=== PATIENT | female | born 1970 | race Caucasian/White ===

== ENCOUNTER 2025-02-20 12:43 | Inpatient (IN) | payer MEDICAID, OTHER ==
[~2025-02-20] VITALS: Ht 157.5 cm; Wt 51.7 kg
[2025-02-20 12:48] VITALS: O2SAT 100
[2025-02-20 14:32] LABS: BASOPHILS % 1.0 % (0.0-2.0); EOSINOPHILS % 0.8 % (0.0-5.0); HEMATOCRIT. 30.0 % (36.0-48.0); HEMOGLOBIN. 10.0 g/dL (12.0-16.0); LYMPHOCYTES % 14.8 % (20.0-50.0); MEAN PLATELET VOLUME 6.8 fl (7.4-10.4); MONOCYTES % 9.9 % (2.0-8.0); NEUTROPHILS % 73.5 % (40.0-76.0); PLATELET 362 x1000/uL (130-400); RED BLOOD CELL COUNT 3.61 mill/uL (4.2-5.4); RED CELL DISTRIBUTION WIDTH 16.6 % (11.6-14.6)
[2025-02-20 14:53] LABS: INR 1.1
[2025-02-20 15:16] LABS: ETHANOL BLOOD < 10 mg/dL (<10); UREA NITROGEN BLOOD 76 mg/dL (9-23)
[2025-02-20 15:24] LABS: CREATININE 6.7 mg/dL (0.6-1.0); TROPONIN I HIGH SENSITIVITY 41 ng/L (3.0-34)
[2025-02-20] MEDS: CLOPIDOGREL 75MG TABLET PO ONE (15:58)
[2025-02-20] MEDS: ASPIRIN 325MG EC TABLET PO ONE (15:58)
[2025-02-20 16:00] VITALS: BP 114/60; PULSE 62; RESP 18; TEMP 37; O2SAT 98
[2025-02-20 18:11] VITALS: BP 114/60; PULSE 51; RESP 18; TEMP 37
[2025-02-20 20:00] VITALS: BP 140/62; PULSE 48; RESP 16; TEMP 36.5; O2SAT 98
[2025-02-20] MEDS: SEVELAMER CARBONATE 800 MG TABLET PO SCH (20:55)
[2025-02-20] MEDS: ATORVASTATIN CALCIUM 40MG TABLET PO SCH (20:55)
[2025-02-21] VITALS (8 sets, daily range): BP systolic 129–167; BP diastolic 54–92; PULSE 51–67; RESP 17–20; TEMP 36.114–37.1; O2SAT 98–100
[2025-02-21] MEDS: ZOLPIDEM TARTRATE 5MG TABLET PO PRN (02:22)
[2025-02-21] MEDS: PANTOPRAZOLE 40MG DR TABLET PO SCH (06:46)
[2025-02-21] MEDS: ASPIRIN 81MG TABLET PO SCH (08:17)
[2025-02-21 08:29] LABS: BASOPHILS % 0.7 % (0.0-2.0); EOSINOPHILS % 1.6 % (0.0-5.0); HEMATOCRIT. 30.6 % (36.0-48.0); HEMOGLOBIN. 10.1 g/dL (12.0-16.0); LYMPHOCYTES % 28.5 % (20.0-50.0); MEAN PLATELET VOLUME 7.0 fl (7.4-10.4); MONOCYTES % 11.0 % (2.0-8.0); NEUTROPHILS % 58.2 % (40.0-76.0); PLATELET 354 x1000/uL (130-400); RED BLOOD CELL COUNT 3.71 mill/uL (4.2-5.4); RED CELL DISTRIBUTION WIDTH 16.6 % (11.6-14.6)
[2025-02-21 08:56] LABS: TRIGLYCERIDE 127 mg/dL (0-150)
[2025-02-21 08:57] LABS: LDL CHOLESTEROL 133 mg/dL (5-100); UREA NITROGEN BLOOD 92 mg/dL (9-23)
[2025-02-21 08:58] LABS: ASPARTATE AMINOTRANSFERASE 17 IU/L (<34)
[2025-02-21 08:59] LABS: BILIRUBIN TOTAL < 0.2 mg/dL (0.1-1.0); PROTEIN TOTAL 7.2 g/dL (6.0-8.3)
[2025-02-21 09:05] LABS: CREATININE 8.2 mg/dL (0.6-1.0)
[2025-02-21] MEDS ORDERED: ONDANSETRON HCL 4MG/2ML INJ IV PRN (12:45)
[2025-02-21] MEDS ORDERED: ASPIRIN 81MG TABLET PO SCH (13:00)
[2025-02-21 17:12] LABS: HEPATITIS A AB IGM NEGATIVE (Negative)
[2025-02-21 17:13] LABS: HEPATITIS B CORE AB IGM NEGATIVE (Negative); HEPATITIS C AB NON REACTIVE (Neg) (Negative)
[2025-02-21] MEDS: ATORVASTATIN CALCIUM 40MG TABLET PO SCH (20:25)
[2025-02-22] VITALS (12 sets, daily range): BP systolic 99–184; BP diastolic 63–109; PULSE 59–85; RESP 16–20; TEMP 36.114–36.7; O2SAT 96–99
[2025-02-22 07:06] LABS: BASOPHILS % 0.6 % (0.0-2.0); EOSINOPHILS % 1.0 % (0.0-5.0); HEMATOCRIT. 29.0 % (36.0-48.0); HEMOGLOBIN. 9.6 g/dL (12.0-16.0); LYMPHOCYTES % 12.1 % (20.0-50.0); MEAN PLATELET VOLUME 6.7 fl (7.4-10.4); MONOCYTES % 8.7 % (2.0-8.0); NEUTROPHILS % 77.6 % (40.0-76.0); PLATELET 338 x1000/uL (130-400); RED BLOOD CELL COUNT 3.55 mill/uL (4.2-5.4); RED CELL DISTRIBUTION WIDTH 16.6 % (11.6-14.6)
[2025-02-22 07:17] LABS: UREA NITROGEN BLOOD 39.0 mg/dL (9-23)
[2025-02-22 07:36] LABS: CREATININE 4.3 mg/dL (0.6-1.0)
[2025-02-22 08:30] LABS: CLARITY URINE TURBID (CLEAR); COLOR URINE ORANGE (YELLOW); GLUCOSE URINE TRACE (NEGATIVE); KETONES URINE NEGATIVE (NEGATIVE); LEUKOCYTE ESTERASE URINE 2+ (NEGATIVE); NITRITE URINE NEGATIVE (NEGATIVE); OCCULT BLOOD URINE 3+ (NEGATIVE); PH URINE 7.0 (4.5-8.0); PROTEIN URINE 3+ (NEGATIVE); SPECIFIC GRAVITY URINE 1.022 (1.005-1.030); UROBILINOGEN URINE 0.2 E.U./dL (0.2-1.0)
[2025-02-22 08:56] LABS: BACTERIA URINE 2+; RBC URINE 15-25 /hpf (0-2); SQUAMOUS EPITHELIAL CELL URINE 3+ /lpf (RARE/1+); YEAST URINE NONE SEEN
[2025-02-22 09:30] LABS: *AMPHETAMINES SCREEN URINE NEGATIVE (NEGATIVE); *BARBITURATES SCREEN URINE NEGATIVE (NEGATIVE); *BENZODIAZEPINES SCREEN URINE NEGATIVE (NEGATIVE); *COCAINE SCREEN URINE NEGATIVE (NEGATIVE); CANNABINOID URINE SCREEN NEGATIVE (NEGATIVE); ECSTASY MDMA SCREEN URINE NEGATIVE (NEGATIVE); METHADONE URINE SCREEN NEGATIVE (NEGATIVE); OPIATES URINE SCREEN NEGATIVE (NEGATIVE); PHENCYCLIDINE URINE SCREEN NEGATIVE (NEGATIVE)
[2025-02-22] MEDS: FAMOTIDINE 20MG/2ML VIAL IV SCH (09:44)
[2025-02-22] MEDS: FAMOTIDINE 20MG TABLET PO SCH (18:08)
[2025-02-22] MEDS: CEFTRIAXONE 1GM/50ML 50 ML IV SCH (21:01)
[2025-02-23] VITALS (13 sets, daily range): BP systolic 119–169; BP diastolic 50–94; PULSE 53–82; RESP 17–20; TEMP 35.66952–36.6; O2SAT 96–98
[2025-02-23 08:33] LABS: UREA NITROGEN BLOOD 62.0 mg/dL (9-23)
[2025-02-23] MEDS: ACETAMINOPHEN 325MG TABLET PO PRN (08:36)
[2025-02-23 08:38] LABS: CREATININE 6.5 mg/dL (0.6-1.0)
[2025-02-23 12:23] LABS: BASOPHILS % 0.6 % (0.0-2.0); EOSINOPHILS % 0.7 % (0.0-5.0); HEMATOCRIT. 26.4 % (36.0-48.0); HEMOGLOBIN. 8.8 g/dL (12.0-16.0); LYMPHOCYTES % 13.4 % (20.0-50.0); MEAN PLATELET VOLUME 6.3 fl (7.4-10.4); MONOCYTES % 6.7 % (2.0-8.0); NEUTROPHILS % 78.6 % (40.0-76.0); PLATELET 263 x1000/uL (130-400); RED BLOOD CELL COUNT 3.17 mill/uL (4.2-5.4); RED CELL DISTRIBUTION WIDTH 16.7 % (11.6-14.6)
[2025-02-23] MEDS: CLONIDINE 0.2MG TABLET PO SCH (12:50)
[2025-02-24] VITALS: BP 166/70; PULSE 62; RESP 19; TEMP 36.3; O2SAT 99
[2025-02-24] MEDS: CLONIDINE 0.1MG TABLET PO PRN (03:26)
[2025-02-24 04:00] VITALS: BP 163/90; PULSE 72; RESP 18; TEMP 36.4; O2SAT 99
[2025-02-24 08:00] VITALS: BP 165/87; PULSE 62; RESP 18; TEMP 36.2; O2SAT 96
[2025-02-24 11:31] LABS: BASOPHILS % 0.8 % (0.0-2.0); EOSINOPHILS % 0.8 % (0.0-5.0); HEMATOCRIT. 25.5 % (36.0-48.0); HEMOGLOBIN. 8.2 g/dL (12.0-16.0); LYMPHOCYTES % 12.6 % (20.0-50.0); MEAN PLATELET VOLUME 6.9 fl (7.4-10.4); MONOCYTES % 8.6 % (2.0-8.0); NEUTROPHILS % 77.2 % (40.0-76.0); PLATELET 243 x1000/uL (130-400); RED BLOOD CELL COUNT 3.07 mill/uL (4.2-5.4); RED CELL DISTRIBUTION WIDTH 16.7 % (11.6-14.6)
[2025-02-24 11:44] LABS: UREA NITROGEN BLOOD 54.0 mg/dL (9-23)
[2025-02-24 11:46] LABS: CREATININE 6.2 mg/dL (0.6-1.0)
[2025-02-24 12:00] VITALS: BP 144/84; PULSE 60; RESP 18; TEMP 36.3; O2SAT 95
[2025-02-24 16:00] VITALS: BP 175/94; PULSE 54; RESP 18; TEMP 36.4; O2SAT 98
[2025-02-24 20:00] VITALS: BP 165/92; PULSE 60; RESP 18; TEMP 36.6; O2SAT 98
[2025-02-25] VITALS (14 sets, daily range): BP systolic 15–190; BP diastolic 79–99; PULSE 48–62; RESP 16–20; TEMP 36.22512–36.50292; O2SAT 98–100
[2025-02-25] MEDS: AMLODIPINE 10MG TABLET PO SCH (17:12)
[2025-02-26 04:00] VITALS: BP 158/75; PULSE 58; RESP 18; TEMP 36.6; O2SAT 100
[2025-02-26 08:00] VITALS: BP 150/71; PULSE 52; RESP 18; TEMP 36.5; O2SAT 98
[2025-02-26 12:00] VITALS: BP 153/84; PULSE 53; RESP 18; TEMP 36.3; O2SAT 98
[2025-02-26 16:00] VITALS: BP 124/79; PULSE 53; RESP 18; TEMP 36.3; O2SAT 98
[2025-02-26 20:00] VITALS: BP 157/89; PULSE 70; RESP 18; TEMP 36.3; O2SAT 98
[2025-02-27] VITALS (11 sets, daily range): BP systolic 151–172; BP diastolic 57–101; PULSE 59–72; RESP 18–19; TEMP 36.2–37.4; O2SAT 95–100
[2025-02-27] MEDS: HALOPERIDOL LACTATE 5MG/ML VIAL IM NR (15:23)
[2025-02-28] VITALS (7 sets, daily range): BP systolic 136–177; BP diastolic 78–96; PULSE 51–74; RESP 18–19; TEMP 36.1–36.8; O2SAT 96–100
[2025-03-01] VITALS: BP 178/96; PULSE 70; RESP 18; TEMP 36.1; O2SAT 98
[2025-03-01 04:00] VITALS: BP 185/103; PULSE 62; RESP 18; TEMP 36; O2SAT 97
[2025-03-01 08:00] VITALS: BP 172/99; PULSE 64; RESP 20; TEMP 36.5; O2SAT 100
[2025-03-01 12:00] VITALS: BP 175/96; PULSE 63; RESP 20; TEMP 36.2; O2SAT 99
[2025-03-01 16:00] VITALS: BP 156/91; PULSE 75; RESP 20; TEMP 36.6; O2SAT 99
[2025-03-01 20:00] VITALS: BP 177/91; PULSE 93; RESP 16; TEMP 36.4; O2SAT 99
[2025-03-01] MEDS: HYDRALAZINE HCL 25MG TABLET PO SCH (21:54)
[2025-03-02] VITALS (15 sets, daily range): BP systolic 140–175; BP diastolic 65–102; PULSE 72–108; RESP 18–20; TEMP 36.2–36.7; O2SAT 95–98
[2025-03-03 08:00] VITALS: BP 175/97; PULSE 83; RESP 18; TEMP 36.8; O2SAT 97
[2025-03-03 12:00] VITALS: BP 152/87; PULSE 81; RESP 19; TEMP 36.7; O2SAT 100
[2025-03-03 16:00] VITALS: BP 163/90; PULSE 93; RESP 19; TEMP 36.8; O2SAT 100
[2025-03-03 20:00] VITALS: BP 150/83; PULSE 94; RESP 18; TEMP 37; O2SAT 98
[2025-03-03] MEDS: HYDRALAZINE HCL 25MG TABLET PO SCH (20:59)
[2025-03-04] VITALS (14 sets, daily range): BP systolic 108–174; BP diastolic 54–111; PULSE 90–113; RESP 17–20; TEMP 35.66952–37.3; O2SAT 97–99
[2025-03-04] MEDS: HYDRALAZINE HCL 100MG TABLET PO SCH (13:35)
[2025-03-05] VITALS: BP 130/76; PULSE 101; RESP 18; TEMP 36.2; O2SAT 99
[2025-03-05 08:00] VITALS: BP 140/80; PULSE 90; RESP 18; TEMP 36.4; O2SAT 98
[2025-03-05 16:00] VITALS: BP 139/77; PULSE 88; RESP 18; TEMP 36.7; O2SAT 99
[2025-03-05] MEDS: LORAZEPAM 1MG TABLET PO PRN (18:33)
[2025-03-05 20:00] VITALS: BP 146/84; PULSE 99; RESP 19; TEMP 36.2; O2SAT 97
[2025-03-05] MEDS ORDERED: ACETAMINOPHEN 325MG TABLET PO PRN (21:45)
[2025-03-06] VITALS (14 sets, daily range): BP systolic 126–153; BP diastolic 70–97; PULSE 66–103; RESP 17–22; TEMP 36.33624–37.2; O2SAT 97–99
[2025-03-06 08:40] LABS: BASOPHILS % 0.9 % (0.0-2.0); EOSINOPHILS % 0.9 % (0.0-5.0); HEMATOCRIT. 25.6 % (36.0-48.0); HEMOGLOBIN. 8.4 g/dL (12.0-16.0); LYMPHOCYTES % 14.1 % (20.0-50.0); MEAN PLATELET VOLUME 6.1 fl (7.4-10.4); MONOCYTES % 9.3 % (2.0-8.0); NEUTROPHILS % 74.8 % (40.0-76.0); PLATELET 369 x1000/uL (130-400); RED BLOOD CELL COUNT 3.14 mill/uL (4.2-5.4); RED CELL DISTRIBUTION WIDTH 16.6 % (11.6-14.6)
[2025-03-06 09:03] LABS: UREA NITROGEN BLOOD 82.0 mg/dL (9-23)
[2025-03-06 09:04] LABS: CREATININE 9.0 mg/dL (0.6-1.0)
[2025-03-07] VITALS: BP 155/92; PULSE 105; RESP 20; TEMP 37.1; O2SAT 97
[2025-03-07 08:20] VITALS: BP 99/52; PULSE 87; RESP 20; TEMP 36.7; O2SAT 98
[2025-03-07 13:44] VITALS: BP 153/78; PULSE 80; RESP 20; TEMP 36.7; O2SAT 98
[2025-03-07 17:20] VITALS: BP 141/83; PULSE 80; RESP 16; TEMP 36.7; O2SAT 98
[2025-03-07 20:00] VITALS: BP 145/86; PULSE 105; RESP 17; TEMP 36.5; O2SAT 97
[2025-03-08] VITALS: BP 157/101; PULSE 104; RESP 18; TEMP 36.6; O2SAT 97
[2025-03-08 06:53] LABS: BASOPHILS % 1.0 % (0.0-2.0); EOSINOPHILS % 0.7 % (0.0-5.0); HEMATOCRIT. 24.0 % (36.0-48.0); HEMOGLOBIN. 8.1 g/dL (12.0-16.0); LYMPHOCYTES % 16.8 % (20.0-50.0); MEAN PLATELET VOLUME 5.8 fl (7.4-10.4); MONOCYTES % 11.1 % (2.0-8.0); NEUTROPHILS % 70.4 % (40.0-76.0); PLATELET 355 x1000/uL (130-400); RED BLOOD CELL COUNT 2.97 mill/uL (4.2-5.4); RED CELL DISTRIBUTION WIDTH 16.5 % (11.6-14.6)
[2025-03-08 07:08] LABS: UREA NITROGEN BLOOD 78.0 mg/dL (9-23)
[2025-03-08 07:12] LABS: CREATININE 9.0 mg/dL (0.6-1.0)
[2025-03-08 08:00] VITALS: BP 155/93; PULSE 100; RESP 22; TEMP 36.7; O2SAT 98
[2025-03-08 12:00] VITALS: BP 157/91; PULSE 90; RESP 19; TEMP 36.7; O2SAT 99
[2025-03-08 16:00] VITALS: BP 151/83; PULSE 92; RESP 19; TEMP 36.3; O2SAT 95
[2025-03-08 20:00] VITALS: BP 136/99; PULSE 89; RESP 19; TEMP 36.3; O2SAT 97
[2025-03-09] VITALS (11 sets, daily range): BP systolic 115–154; BP diastolic 69–97; PULSE 71–100; RESP 15–20; TEMP 36.1–36.7; O2SAT 15–99
[2025-03-10] VITALS: BP 138/79; PULSE 87; RESP 18; TEMP 36.8; O2SAT 98
[2025-03-10 04:00] VITALS: BP 156/89; PULSE 99; RESP 18; TEMP 36.8; O2SAT 98
[2025-03-10 07:36] LABS: BASOPHILS % 0.7 % (0.0-2.0); EOSINOPHILS % 0.8 % (0.0-5.0); HEMATOCRIT. 21.9 % (36.0-48.0); HEMOGLOBIN. 7.3 g/dL (12.0-16.0); LYMPHOCYTES % 18.2 % (20.0-50.0); MEAN PLATELET VOLUME 5.9 fl (7.4-10.4); MONOCYTES % 8.9 % (2.0-8.0); NEUTROPHILS % 71.4 % (40.0-76.0); PLATELET 282 x1000/uL (130-400); RED BLOOD CELL COUNT 2.74 mill/uL (4.2-5.4); RED CELL DISTRIBUTION WIDTH 17.4 % (11.6-14.6)
[2025-03-10 07:54] LABS: UREA NITROGEN BLOOD 72.0 mg/dL (9-23)
[2025-03-10 08:00] VITALS: BP 140/72; PULSE 96; RESP 18; TEMP 36.2; O2SAT 96
[2025-03-10 09:22] LABS: CREATININE 9.5 mg/dL (0.6-1.0)
[2025-03-10 12:00] VITALS: BP 135/87; PULSE 93; RESP 18; TEMP 36.5; O2SAT 97
[2025-03-10 16:00] VITALS: BP 133/77; PULSE 92; RESP 17; TEMP 36.4
[2025-03-10 20:00] VITALS: BP 134/82; PULSE 94; RESP 19; TEMP 36.5; O2SAT 98
[2025-03-10] MEDS: LORAZEPAM 1MG TABLET PO PRN (20:04)
[2025-03-10] MEDS: RISPERIDONE 0.25MG TABLET PO SCH (23:46)
[2025-03-11] VITALS (12 sets, daily range): BP systolic 125–149; BP diastolic 50–95; PULSE 68–103; RESP 14–19; TEMP 36.114–36.7; O2SAT 97–100
[2025-03-12] VITALS: BP 137/86; PULSE 97; RESP 18; TEMP 36.4; O2SAT 97
[2025-03-12 04:00] VITALS: BP 157/88; PULSE 87; RESP 14; TEMP 37; O2SAT 98
[2025-03-12 08:00] VITALS: BP 141/99; PULSE 93; RESP 19; TEMP 36.8; O2SAT 100
[2025-03-12 12:00] VITALS: BP 140/75; PULSE 95; RESP 20; TEMP 36; O2SAT 96
[2025-03-12 16:00] VITALS: BP 130/90; PULSE 87; RESP 19; TEMP 35.9; O2SAT 100
[2025-03-12 20:00] VITALS: BP 131/85; PULSE 81; RESP 18; TEMP 36.2; O2SAT 100
[2025-03-13] VITALS (13 sets, daily range): BP systolic 104–157; BP diastolic 56–95; PULSE 67–97; RESP 16–20; TEMP 35.9–36.7; O2SAT 96–100
[2025-03-14 00:10] VITALS: BP 148/95; PULSE 98; RESP 20; TEMP 36.4; O2SAT 96
[2025-03-14 04:10] VITALS: BP 145/89; PULSE 98; RESP 20; TEMP 36.9; O2SAT 95
[2025-03-14 08:00] VITALS: BP 145/79; PULSE 86; RESP 18; TEMP 36.5; O2SAT 96
[2025-03-14 12:00] VITALS: BP 148/85; PULSE 84; RESP 20; TEMP 36.4; O2SAT 96
[2025-03-14 16:00] VITALS: BP 127/91; PULSE 91; RESP 20; TEMP 36.4; O2SAT 97
[2025-03-14 20:00] VITALS: BP 113/77; PULSE 85; RESP 19; TEMP 36.2; O2SAT 98
[2025-03-15] VITALS: BP 164/91; PULSE 103; RESP 18; TEMP 36.2; O2SAT 98
[2025-03-15 04:00] VITALS: BP 150/96; PULSE 96; RESP 18; TEMP 36.1; O2SAT 97
[2025-03-15 08:00] VITALS: BP 158/94; PULSE 99; RESP 18; TEMP 36.8; O2SAT 94
[2025-03-15 12:00] VITALS: BP 132/84; PULSE 90; RESP 18; TEMP 36.7; O2SAT 94
[2025-03-15 16:00] VITALS: BP 121/62; PULSE 87; RESP 18; TEMP 36.8; O2SAT 94
[2025-03-16] VITALS (14 sets, daily range): BP systolic 109–154; BP diastolic 66–89; PULSE 56–102; RESP 16–19; TEMP 35.7–36.7; O2SAT 95–100
[2025-03-17] VITALS: BP 131/87; PULSE 94; RESP 16; TEMP 36.7; O2SAT 97
[2025-03-17 04:00] VITALS: BP 136/75; PULSE 86; RESP 18; TEMP 36.6; O2SAT 97
[2025-03-17 08:00] VITALS: BP 140/73; PULSE 90; RESP 19; TEMP 36.5; O2SAT 100
[2025-03-17 12:00] VITALS: BP 116/89; PULSE 87; RESP 18; TEMP 37.2; O2SAT 98
[2025-03-17 16:00] VITALS: BP 124/78; PULSE 90; RESP 19; TEMP 35.6; O2SAT 99
[2025-03-18] VITALS (11 sets, daily range): BP systolic 101–147; BP diastolic 63–89; PULSE 63–94; RESP 17–20; TEMP 35.7–37.1; O2SAT 96–98
[2025-03-19] VITALS (7 sets, daily range): BP systolic 99–155; BP diastolic 60–84; PULSE 63–95; RESP 18–19; TEMP 36.1–36.6; O2SAT 95–100
[2025-03-20] VITALS (13 sets, daily range): BP systolic 101–137; BP diastolic 56–81; PULSE 63–91; RESP 16–18; TEMP 35.2–36.50292; O2SAT 95–100
[2025-03-21] VITALS (9 sets, daily range): BP systolic 108–136; BP diastolic 2–82; PULSE 73–98; RESP 16–20; TEMP 36.1–37.11408; O2SAT 95–100
[2025-03-21 13:06] LABS: MEAN PLATELET VOLUME 6.7 fl (7.4-10.4); PLATELET 285 x1000/uL (130-400); RED BLOOD CELL COUNT 2.42 mill/uL (4.2-5.4); RED CELL DISTRIBUTION WIDTH 18.2 % (11.6-14.6)
[2025-03-21 13:18] LABS: UREA NITROGEN BLOOD 32.0 mg/dL (9-23)
[2025-03-21 13:22] LABS: HEMOGLOBIN. 6.5 g/dL (12.0-16.0)
[2025-03-21 13:23] LABS: HEMATOCRIT. 20.0 % (36.0-48.0)
[2025-03-21 13:26] LABS: CREATININE 5.8 mg/dL (0.6-1.0)
[2025-03-21 15:49] LABS: EOSINOPHILS % MANUAL 1.0 % (0.0-5.0); LYMPHOCYTES % MANUAL 9.0 % (20.0-60.0); MONOCYTES % MANUAL 10.0 % (2.0-8.0); NEUTROPHILS % MANUAL 80.0 % (45.0-75.0); NUCLEATED RED BLOOD CELLS 2 /100 WBC; PLATELET ESTIMATE NORMAL
[2025-03-21 18:52] LABS: PHOSPHORUS 4.0 mg/dL (2.5-4.9)
[2025-03-22] VITALS: BP 128/79; PULSE 80; RESP 19; TEMP 36.7; O2SAT 96
[2025-03-22 00:56] VITALS: BP 140/85; PULSE 96; RESP 18; TEMP 36.61404
[2025-03-22 01:51] VITALS: BP 139/81; PULSE 91; RESP 18; TEMP 36.83628
[2025-03-22 04:00] VITALS: BP 142/84; PULSE 89; RESP 16; TEMP 36.7; O2SAT 97
[2025-03-22 04:12] LABS: INR 1.0
[2025-03-22 12:00] VITALS: BP 123/74; PULSE 81; RESP 17; TEMP 36.5; O2SAT 97
[2025-03-22 16:00] VITALS: BP 98/52; PULSE 89; RESP 17; TEMP 36.4; O2SAT 96
[2025-03-23] VITALS: BP 118/80; PULSE 88; RESP 18; TEMP 36; O2SAT 97
[2025-03-23 04:00] VITALS: BP 128/65; PULSE 79; RESP 17; TEMP 36.1; O2SAT 99
[2025-03-23 07:03] LABS: HEMATOCRIT. 22.7 % (36.0-48.0); HEMOGLOBIN. 7.7 g/dL (12.0-16.0); MEAN PLATELET VOLUME 6.5 fl (7.4-10.4); PLATELET 324 x1000/uL (130-400); RED BLOOD CELL COUNT 2.78 mill/uL (4.2-5.4); RED CELL DISTRIBUTION WIDTH 18.0 % (11.6-14.6)
[2025-03-23 07:11] LABS: UREA NITROGEN BLOOD 59.0 mg/dL (9-23)
[2025-03-23 07:55] LABS: CREATININE 8.9 mg/dL (0.6-1.0)
[2025-03-23 08:00] VITALS: BP 135/81; PULSE 71; RESP 17; TEMP 36.7; O2SAT 100
[2025-03-23 12:00] VITALS: BP 141/66; PULSE 90; RESP 20; TEMP 36.5; O2SAT 100
[2025-03-23 16:00] VITALS: BP 116/66; PULSE 88; RESP 17; TEMP 36.8; O2SAT 100
[2025-03-23 16:34] LABS: EOSINOPHILS % MANUAL 4.0 % (0.0-5.0); LYMPHOCYTES % MANUAL 25.0 % (20.0-60.0); MONOCYTES % MANUAL 7.0 % (2.0-8.0); NEUTROPHILS % MANUAL 64.0 % (45.0-75.0); PLATELET ESTIMATE NORMAL
[2025-03-23 20:00] VITALS: BP 115/62; PULSE 83; RESP 18; TEMP 36.3; O2SAT 99
[2025-03-23] MEDS: EPOETIN ALFA-EPBX 4,000 UNITS/ML VIAL SUBCUT SCH (22:13)
[2025-03-24] VITALS (12 sets, daily range): BP systolic 102–144; BP diastolic 47–83; PULSE 68–90; RESP 16–20; TEMP 36.1–36.7; O2SAT 96–99
[2025-03-25] MEDS: ZOLPIDEM TARTRATE 5MG TABLET PO PRN (02:55)
[2025-03-25 07:40] LABS: PLATELET 327 x1000/uL (130-400); RED BLOOD CELL COUNT 3.00 mill/uL (4.2-5.4); RED CELL DISTRIBUTION WIDTH 18.4 % (11.6-14.6)
[2025-03-25 07:57] LABS: UREA NITROGEN BLOOD 40 mg/dL (9-23)
[2025-03-25 07:59] LABS: PHOSPHORUS 3.8 mg/dL (2.5-4.9)
[2025-03-25 08:00] VITALS: BP 153/88; PULSE 82; RESP 20; TEMP 36.8; O2SAT 98
[2025-03-25 08:21] LABS: CREATININE 6.4 mg/dL (0.6-1.0)
[2025-03-25 12:00] VITALS: BP 125/83; PULSE 64; RESP 18; TEMP 36.7; O2SAT 95
[2025-03-25 16:00] VITALS: BP 140/81; PULSE 72; RESP 19; TEMP 36.4; O2SAT 99
[2025-03-25 20:00] VITALS: BP 117/75; PULSE 90; RESP 19; TEMP 37.1; O2SAT 96
[2025-03-26] VITALS (8 sets, daily range): BP systolic 124–170; BP diastolic 76–92; PULSE 88–92; RESP 16–20; TEMP 36.1–36.55848; O2SAT 96–97
[2025-03-27] VITALS (9 sets, daily range): BP systolic 110–170; BP diastolic 66–88; PULSE 68–101; RESP 17–18; TEMP 30.6–36.6; O2SAT 97–99
[2025-03-28] VITALS (12 sets, daily range): BP systolic 94–151; BP diastolic 60–91; PULSE 75–102; RESP 18–22; TEMP 35.89176–36.4; O2SAT 95–99
[2025-03-29 08:00] VITALS: BP 144/80; PULSE 77; RESP 18; TEMP 36.8; O2SAT 98
[2025-03-29 12:00] VITALS: BP 130/64; PULSE 74; RESP 18; TEMP 36.6; O2SAT 98
[2025-03-29 16:00] VITALS: BP 131/61; PULSE 75; RESP 18; TEMP 36.5; O2SAT 98
[2025-03-29 20:00] VITALS: BP 137/68; PULSE 84; RESP 18; TEMP 36.6; O2SAT 95
[2025-03-30] VITALS (14 sets, daily range): BP systolic 89–164; BP diastolic 52–102; PULSE 72–98; RESP 16–19; TEMP 36.2–37.1; O2SAT 93–99
[2025-03-31] VITALS: BP 125/83; PULSE 97; RESP 18; TEMP 36.4
[2025-03-31 04:00] VITALS: BP 127/86; PULSE 86; RESP 18; TEMP 36.2; O2SAT 100
[2025-03-31 08:00] VITALS: BP 164/89; PULSE 78; RESP 19; TEMP 36.1; O2SAT 100
[2025-03-31 12:00] VITALS: BP 151/84; PULSE 72; RESP 18; TEMP 36.1; O2SAT 97
[2025-03-31 16:00] VITALS: BP 149/95; PULSE 83; RESP 16; TEMP 36.7; O2SAT 100
[2025-04-01] VITALS (14 sets, daily range): BP systolic 105–162; BP diastolic 75–97; PULSE 75–105; RESP 18; TEMP 36.2–36.8; O2SAT 94–100
[2025-04-02 04:00] VITALS: BP 152/93; PULSE 89; RESP 18; TEMP 36.4; O2SAT 90
[2025-04-02 12:00] VITALS: BP 139/79; PULSE 81; RESP 16; TEMP 36.1; O2SAT 96
[2025-04-02 16:00] VITALS: BP 130/75; PULSE 81; RESP 18; TEMP 36.4; O2SAT 97
[2025-04-02 20:00] VITALS: BP 148/70; PULSE 94; RESP 17; TEMP 36.3; O2SAT 98
[2025-04-03] VITALS (7 sets, daily range): BP systolic 103–167; BP diastolic 69–98; PULSE 59–86; RESP 17–20; TEMP 36.28068–36.9; O2SAT 97–98
[2025-04-03 08:49] LABS: PLATELET 406 x1000/uL (130-400); RED BLOOD CELL COUNT 2.94 mill/uL (4.2-5.4); RED CELL DISTRIBUTION WIDTH 19.0 % (11.6-14.6)
[2025-04-04 08:00] VITALS: BP 151/94; PULSE 77; RESP 17; TEMP 36.7; O2SAT 97
[2025-04-04 12:00] VITALS: BP 141/89; PULSE 68; RESP 17; TEMP 36.4; O2SAT 98
[2025-04-04 20:00] VITALS: BP 141/85; PULSE 68; RESP 16; TEMP 35.9; O2SAT 95
[2025-04-05] VITALS: BP 124/78; PULSE 72; RESP 17; TEMP 35.8; O2SAT 97
[2025-04-05 08:00] VITALS: BP 154/84; PULSE 65; RESP 18; TEMP 36.4; O2SAT 98
[2025-04-05] MEDS: AMLODIPINE 10MG TABLET PO SCH (11:06)
[2025-04-05 12:00] VITALS: BP 137/80; PULSE 84; RESP 19; TEMP 36.1; O2SAT 99
[2025-04-05 16:00] VITALS: BP 125/70; PULSE 73; RESP 18; TEMP 36.4; O2SAT 97
[2025-04-05 20:00] VITALS: BP 140/78; PULSE 82; RESP 18; TEMP 36.8; O2SAT 98
[2025-04-06] VITALS (14 sets, daily range): BP systolic 95–141; BP diastolic 51–89; PULSE 67–81; RESP 16–19; TEMP 36.4–36.7; O2SAT 95–98
[2025-04-06] MEDS ORDERED: ALTEPLASE 2MG/VIAL ITC ONE (14:00)
[2025-04-06] MEDS ORDERED: ALTEPLASE 2MG/VIAL ITC NR (15:00)
[2025-04-06 20:03] LABS: BASOPHILS % 0.6 % (0.0-2.0); EOSINOPHILS % 1.3 % (0.0-5.0); HEMATOCRIT. 24.0 % (36.0-48.0); HEMOGLOBIN. 7.8 g/dL (12.0-16.0); LYMPHOCYTES % 14.9 % (20.0-50.0); MEAN PLATELET VOLUME 6.7 fl (7.4-10.4); MONOCYTES % 11.2 % (2.0-8.0); NEUTROPHILS % 72.0 % (40.0-76.0); PLATELET 487 x1000/uL (130-400); RED BLOOD CELL COUNT 2.91 mill/uL (4.2-5.4); RED CELL DISTRIBUTION WIDTH 18.7 % (11.6-14.6)
[2025-04-06 20:16] LABS: UREA NITROGEN BLOOD 63.0 mg/dL (9-23)
[2025-04-06 20:18] LABS: PHOSPHORUS 4.5 mg/dL (2.5-4.9)
[2025-04-06 20:32] LABS: CREATININE 7.6 mg/dL (0.6-1.0)
[2025-04-07 08:00] VITALS: BP 162/85; PULSE 81; RESP 20; TEMP 36.8; O2SAT 97
[2025-04-07 12:00] VITALS: BP 150/70; PULSE 78; RESP 18; TEMP 36; O2SAT 98
[2025-04-07 16:00] VITALS: BP 135/78; PULSE 82; RESP 18; TEMP 36.6; O2SAT 100
[2025-04-07 18:48] LABS: HEPATITIS A AB IGM NEGATIVE (Negative)
[2025-04-07 18:49] LABS: HEPATITIS B CORE AB IGM NEGATIVE (Negative); HEPATITIS C AB NON REACTIVE (Neg) (Negative)
[2025-04-07 20:00] VITALS: BP 145/82; PULSE 77; RESP 18; TEMP 36
[2025-04-08] VITALS (15 sets, daily range): BP systolic 106–152; BP diastolic 58–86; PULSE 68–90; RESP 16–20; TEMP 35.6–36.8; O2SAT 97–100
[2025-04-09] VITALS: BP 162/97; PULSE 84; RESP 18; TEMP 36.7; O2SAT 100
[2025-04-09 04:00] VITALS: BP 155/90; PULSE 78; RESP 18; TEMP 36.4; O2SAT 100
[2025-04-09 08:00] VITALS: BP 177/96; PULSE 87; RESP 19; TEMP 36.4; O2SAT 98
[2025-04-09 12:00] VITALS: BP 127/82; PULSE 87; RESP 18; TEMP 36.5; O2SAT 98
[2025-04-09 16:00] VITALS: BP 135/98; PULSE 74; RESP 19; TEMP 36.3; O2SAT 98
[2025-04-09 20:00] VITALS: BP 162/94; PULSE 71; RESP 18; TEMP 36.5; O2SAT 99
[2025-04-10] VITALS (11 sets, daily range): BP systolic 110–159; BP diastolic 73–98; PULSE 66–159; RESP 16–18; TEMP 36.114–36.7; O2SAT 94–100
[2025-04-10] MEDS ORDERED: ACETAMINOPHEN 325MG TABLET PO PRN (16:00)
[2025-04-10] MEDS: ATORVASTATIN CALCIUM 40MG TABLET PO SCH (21:29)
[2025-04-10] MEDS: ENOXAPARIN 30MG/0.3ML SYR SUBCUT SCH (22:45)
[2025-04-11] VITALS: BP 149/86; PULSE 81; RESP 17; TEMP 37.1; O2SAT 97
[2025-04-11 04:00] VITALS: BP 127/78; PULSE 69; RESP 17; TEMP 36.7; O2SAT 96
[2025-04-11 08:00] VITALS: BP 142/79; PULSE 78; RESP 18; TEMP 36.7; O2SAT 97
[2025-04-11] MEDS ORDERED: ASPIRIN 325MG TABLET PO SCH (09:00)
[2025-04-11] MEDS: ASPIRIN 81MG TABLET PO SCH (09:20)
[2025-04-11 12:00] VITALS: BP 156/74; PULSE 18; RESP 18; TEMP 36.4; O2SAT 98
[2025-04-11 16:00] VITALS: BP 134/89; PULSE 62; RESP 19; TEMP 36.1; O2SAT 98
[2025-04-11 20:00] VITALS: BP 150/84; PULSE 55; RESP 16; TEMP 36.4; O2SAT 96
[2025-04-12] VITALS: BP 142/76; PULSE 65; RESP 17; TEMP 36; O2SAT 98
[2025-04-12 04:00] VITALS: BP 141/91; PULSE 83; RESP 18; TEMP 37; O2SAT 97
[2025-04-12 08:00] VITALS: BP 167/93; PULSE 76; RESP 20; TEMP 36.6; O2SAT 99
[2025-04-12 12:00] VITALS: BP 137/77; PULSE 83; RESP 20; TEMP 36.9; O2SAT 99
[2025-04-12 16:00] VITALS: BP 130/65; PULSE 80; RESP 20; TEMP 36.6; O2SAT 99
[2025-04-12 20:00] VITALS: BP 146/92; PULSE 85; RESP 18; TEMP 36.5; O2SAT 97
[2025-04-13] VITALS (17 sets, daily range): BP systolic 104–164; BP diastolic 65–98; PULSE 67–96; RESP 16–19; TEMP 35.78064–37.00296; O2SAT 93–100
[2025-04-13 08:44] LABS: BASOPHILS % 0.6 % (0.0-2.0); EOSINOPHILS % 1.0 % (0.0-5.0); LYMPHOCYTES % 11.3 % (20.0-50.0); MEAN PLATELET VOLUME 6.1 fl (7.4-10.4); MONOCYTES % 6.6 % (2.0-8.0); NEUTROPHILS % 80.5 % (40.0-76.0); PLATELET 383 x1000/uL (130-400); RED BLOOD CELL COUNT 2.49 mill/uL (4.2-5.4); RED CELL DISTRIBUTION WIDTH 18.3 % (11.6-14.6)
[2025-04-13 08:50] LABS: CREATININE 13.7 mg/dL (0.6-1.0); PHOSPHORUS 7.4 mg/dL (2.5-4.9); UREA NITROGEN BLOOD 114 mg/dL (9-23)
[2025-04-13 09:05] LABS: HEMATOCRIT. 20.5 % (36.0-48.0); HEMOGLOBIN. 6.9 g/dL (12.0-16.0)
[2025-04-13] MEDS: DEXTROSE 50% WATER 50ML SYRINGE IV NR (11:57)
[2025-04-13] MEDS: SODIUM BICARBONATE 8.4% 50MEQ/50ML SYR IV NR (11:57)
[2025-04-13] MEDS: INSULIN REGULAR (HUMULIN R) 1000UNITS/10ML VIAL IV NR (11:57)
[2025-04-13] MEDS: SODIUM ZIRCONIUM CYCLOSILICATE 10GM/PACKET PO NR (11:57)
[2025-04-13] MEDS: CLONIDINE 0.1MG TABLET PO PRN (20:37)
[2025-04-13] MEDS: EPOETIN ALFA-EPBX 4,000 UNITS/ML VIAL SUBCUT SCH (21:56)
[2025-04-14] VITALS: BP 131/82; PULSE 82; RESP 18; TEMP 36.3; O2SAT 99
[2025-04-14 08:00] VITALS: BP 132/79; PULSE 88; RESP 19; TEMP 36.6; O2SAT 98
[2025-04-14 12:00] VITALS: BP 130/75; PULSE 85; RESP 19; TEMP 36.7; O2SAT 99
[2025-04-14 16:00] VITALS: BP 136/80; PULSE 61; RESP 18; TEMP 36.8; O2SAT 100
[2025-04-14 20:00] VITALS: BP 159/89; PULSE 85; RESP 19; TEMP 36.5; O2SAT 99
[2025-04-15] VITALS (13 sets, daily range): BP systolic 120–177; BP diastolic 75–102; PULSE 2–120; RESP 16–22; TEMP 34.8–37.6; O2SAT 95–99
[2025-04-15] MEDS: HYDRALAZINE HCL 50MG TABLET PO SCH (21:14)
[2025-04-16] VITALS: BP 136/79; PULSE 84; RESP 18; TEMP 37; O2SAT 98
[2025-04-16 04:00] VITALS: BP 163/96; PULSE 95; RESP 18; TEMP 36.9; O2SAT 94
[2025-04-16 12:00] VITALS: BP 151/88; PULSE 83; RESP 16; TEMP 36.3; O2SAT 98
[2025-04-16 16:00] VITALS: BP 143/88; PULSE 80; RESP 16; TEMP 36.3; O2SAT 100
[2025-04-16 20:00] VITALS: BP 152/101; PULSE 85; RESP 18; TEMP 36.6; O2SAT 99
[2025-04-16] MEDS: HYDRALAZINE HCL 50MG TABLET PO SCH (23:40)
[2025-04-17] VITALS (11 sets, daily range): BP systolic 120–165; BP diastolic 78–101; PULSE 17–96; RESP 16–20; TEMP 36.114–36.6; O2SAT 90–100
[2025-04-18] VITALS: BP 136/78; PULSE 86; RESP 17; TEMP 36.8; O2SAT 97
[2025-04-18 04:00] VITALS: BP 128/76; PULSE 79; RESP 18; TEMP 36.7; O2SAT 95
[2025-04-18 08:00] VITALS: BP 156/82; PULSE 86; RESP 19; TEMP 36.4; O2SAT 100
[2025-04-18 12:00] VITALS: BP 142/72; PULSE 90; RESP 19; TEMP 36.1; O2SAT 100
[2025-04-18 16:00] VITALS: BP 141/86; PULSE 87; RESP 18; TEMP 36.7; O2SAT 99
[2025-04-18 20:00] VITALS: BP 143/94; PULSE 100; RESP 18; TEMP 37.1; O2SAT 98
[2025-04-19] VITALS: BP 150/80; PULSE 97; RESP 20; TEMP 36.7; O2SAT 98
[2025-04-19 04:00] VITALS: BP 152/84; PULSE 97; RESP 19; TEMP 36.7; O2SAT 98
[2025-04-19 08:00] VITALS: BP 159/90; PULSE 85; RESP 19; TEMP 36.8; O2SAT 95
[2025-04-19 12:00] VITALS: BP 130/63; PULSE 78; RESP 18; TEMP 35.8; O2SAT 100
[2025-04-19 16:00] VITALS: BP 140/81; PULSE 82; RESP 16; TEMP 36.8; O2SAT 100
[2025-04-19 16:38] LABS: UREA NITROGEN BLOOD 75.0 mg/dL (9-23)
[2025-04-19 16:39] LABS: CREATININE 11.1 mg/dL (0.6-1.0)
[2025-04-19 20:00] VITALS: BP 149/79; PULSE 92; RESP 18; TEMP 36.3; O2SAT 96
[2025-04-20] VITALS (12 sets, daily range): BP systolic 115–185; BP diastolic 78–111; PULSE 74–96; RESP 17–18; TEMP 36.3918–37.1; O2SAT 92–100
[2025-04-20 17:11] LABS: BASOPHILS % 0.9 % (0.0-2.0); EOSINOPHILS % 1.1 % (0.0-5.0); HEMATOCRIT. 26.7 % (36.0-48.0); HEMOGLOBIN. 9.0 g/dL (12.0-16.0); LYMPHOCYTES % 13.0 % (20.0-50.0); MEAN PLATELET VOLUME 5.5 fl (7.4-10.4); MONOCYTES % 8.8 % (2.0-8.0); NEUTROPHILS % 76.2 % (40.0-76.0); PLATELET 245 x1000/uL (130-400); RED BLOOD CELL COUNT 3.20 mill/uL (4.2-5.4); RED CELL DISTRIBUTION WIDTH 18.1 % (11.6-14.6)
[2025-04-20 17:25] LABS: UREA NITROGEN BLOOD 61.0 mg/dL (9-23)
[2025-04-20 17:26] LABS: CREATININE 9.1 mg/dL (0.6-1.0)
[2025-04-21] VITALS: BP 135/80; PULSE 90; RESP 18; TEMP 37.1; O2SAT 90
[2025-04-21 04:00] VITALS: BP 137/87; PULSE 94; RESP 18; TEMP 37; O2SAT 95
[2025-04-21 08:00] VITALS: BP 162/87; PULSE 89; RESP 18; TEMP 36.3; O2SAT 97
[2025-04-21 12:00] VITALS: BP 147/97; PULSE 84; RESP 18; TEMP 36.4; O2SAT 97
[2025-04-21 16:00] VITALS: BP 132/87; PULSE 85; RESP 19; TEMP 36.6; O2SAT 97
[2025-04-21 20:00] VITALS: BP 146/86; PULSE 91; RESP 18; TEMP 36.7; O2SAT 98
[2025-04-22] VITALS (14 sets, daily range): BP systolic 105–159; BP diastolic 55–111; PULSE 59–93; RESP 17–19; TEMP 36.114–36.5; O2SAT 93–100
[2025-04-22] MEDS: HYDRALAZINE HCL 100MG TABLET PO SCH (21:41)
[2025-04-23] VITALS: BP 112/64; PULSE 79; RESP 18; TEMP 36.6; O2SAT 100
[2025-04-23 04:00] VITALS: BP 160/107; PULSE 92; RESP 19; TEMP 36.3; O2SAT 100
[2025-04-23 08:00] VITALS: PULSE 88; RESP 19; TEMP 36.5; O2SAT 98
[2025-04-23 12:00] VITALS: BP 151/88; PULSE 92; RESP 17; TEMP 36.1; O2SAT 98
[2025-04-23 20:00] VITALS: BP 154/91; PULSE 85; RESP 18; TEMP 36.6; O2SAT 100
[2025-04-24] VITALS (12 sets, daily range): BP systolic 118–172; BP diastolic 72–104; PULSE 71–95; RESP 16–20; TEMP 36.1–36.78072; O2SAT 96–98
[2025-04-25 00:15] VITALS: BP 118/72; PULSE 87
[2025-04-25 04:00] VITALS: BP 159/90; PULSE 88; RESP 17; TEMP 35.9; O2SAT 97
[2025-04-25 12:00] VITALS: RESP 16; TEMP 36.4
[2025-04-25 16:00] VITALS: BP 148/97; PULSE 60; RESP 16; TEMP 36.7; O2SAT 97
[2025-04-25 20:00] VITALS: BP 152/93; PULSE 91; RESP 18; TEMP 36.9; O2SAT 97
[2025-04-26] VITALS: BP 149/90; PULSE 91; RESP 18; TEMP 37; O2SAT 99
[2025-04-26 04:00] VITALS: BP 151/95; PULSE 90; RESP 18; TEMP 37.1; O2SAT 97
[2025-04-26 08:00] VITALS: BP 150/88; PULSE 88; RESP 20; TEMP 37.1; O2SAT 99
[2025-04-26 20:00] VITALS: BP 170/98; PULSE 84; RESP 18; TEMP 36.8; O2SAT 96
[2025-04-27] VITALS (10 sets, daily range): BP systolic 122–178; BP diastolic 58–106; PULSE 75–85; RESP 16–18; TEMP 36.1–36.6696; O2SAT 95–100
[2025-04-27 14:06] LABS: PHOSPHORUS 4.1 mg/dL (2.5-4.9)
[2025-04-27 14:10] LABS: BASOPHILS % 1.0 % (0.0-2.0); EOSINOPHILS % 1.9 % (0.0-5.0); HEMATOCRIT. 24.2 % (36.0-48.0); HEMOGLOBIN. 8.0 g/dL (12.0-16.0); LYMPHOCYTES % 15.3 % (20.0-50.0); MEAN PLATELET VOLUME 6.2 fl (7.4-10.4); MONOCYTES % 11.7 % (2.0-8.0); NEUTROPHILS % 70.1 % (40.0-76.0); PLATELET 203 x1000/uL (130-400); RED BLOOD CELL COUNT 2.98 mill/uL (4.2-5.4); RED CELL DISTRIBUTION WIDTH 17.3 % (11.6-14.6)
[2025-04-27] MEDS: EPOETIN ALFA-EPBX 2,000 UNITS/ML VIAL SUBCUT SCH (21:16)
[2025-04-28] VITALS: BP 141/86; PULSE 87; RESP 17; TEMP 36.7; O2SAT 98
[2025-04-28 08:00] VITALS: BP 166/84; PULSE 89; RESP 18; TEMP 36.8; O2SAT 98
[2025-04-28 12:00] VITALS: BP 166/84; PULSE 89; RESP 18; TEMP 36.8; O2SAT 98
[2025-04-28 16:00] VITALS: BP 129/77; PULSE 81; RESP 19; TEMP 36.7; O2SAT 98
[2025-04-28 17:21] VITALS: BP 134/80; PULSE 80; RESP 18; TEMP 36.4
[2025-04-28 20:00] VITALS: BP 144/77; PULSE 65; RESP 12; TEMP 36.9; O2SAT 99
[2025-04-29] VITALS (14 sets, daily range): BP systolic 120–174; BP diastolic 67–109; PULSE 64–91; RESP 14–19; TEMP 36.1–36.9; O2SAT 96–99
[2025-04-30] VITALS: BP 140/86; PULSE 88; RESP 18; TEMP 37.2; O2SAT 99
[2025-04-30 04:00] VITALS: BP 158/84; PULSE 88; RESP 18; TEMP 37.1; O2SAT 99
[2025-04-30 08:00] VITALS: BP 168/92; PULSE 90; RESP 17; TEMP 36.1; O2SAT 98
[2025-04-30 12:00] VITALS: BP 162/100; PULSE 89; RESP 18; TEMP 36.6; O2SAT 99
[2025-04-30 16:00] VITALS: BP 142/89; PULSE 82; RESP 18; TEMP 36.3; O2SAT 97
[2025-04-30 20:00] VITALS: BP 151/88; PULSE 86; RESP 19; TEMP 36.4; O2SAT 95
[2025-05-01] VITALS (18 sets, daily range): BP systolic 92–169; BP diastolic 69–108; PULSE 75–90; RESP 18–20; TEMP 36.114–36.6696; O2SAT 95–97
[2025-05-01] MEDS: NIFEDIPINE XL 30MG TAB PO SCH (10:43)
[2025-05-02] VITALS: BP 140/86; PULSE 92; RESP 18; TEMP 36.6; O2SAT 99
[2025-05-02 04:00] VITALS: BP 149/87; PULSE 88; RESP 18; TEMP 36.7; O2SAT 98
[2025-05-02 08:00] VITALS: BP 140/82; PULSE 86; RESP 18; TEMP 36.8; O2SAT 98
[2025-05-02 12:00] VITALS: BP 129/76; PULSE 85; RESP 18; TEMP 36.9; O2SAT 98
[2025-05-02 20:00] VITALS: BP 152/82; PULSE 85; RESP 18; TEMP 36.4; O2SAT 94
[2025-05-03] VITALS: BP 162/105; PULSE 85; RESP 16; TEMP 36.4; O2SAT 100
[2025-05-03 04:00] VITALS: BP 152/84; PULSE 85; RESP 20; TEMP 36.2; O2SAT 98
[2025-05-03 08:00] VITALS: BP 150/70; PULSE 68; RESP 17; TEMP 36.9; O2SAT 95
[2025-05-03 12:00] VITALS: BP 158/84; PULSE 67; RESP 19; TEMP 36.5; O2SAT 95
[2025-05-03 16:00] VITALS: BP 123/75; PULSE 16; RESP 16; TEMP 36.4; O2SAT 95
[2025-05-03 20:00] VITALS: BP 132/78; PULSE 68; RESP 16; TEMP 36.6; O2SAT 96
[2025-05-04] VITALS (14 sets, daily range): BP systolic 118–163; BP diastolic 72–107; PULSE 70–89; RESP 15–20; TEMP 36.33624–36.9; O2SAT 95–100
[2025-05-04 06:50] LABS: BASOPHILS % 0.9 % (0.0-2.0); EOSINOPHILS % 1.0 % (0.0-5.0); HEMATOCRIT. 21.3 % (36.0-48.0); HEMOGLOBIN. 7.2 g/dL (12.0-16.0); LYMPHOCYTES % 23.6 % (20.0-50.0); MEAN PLATELET VOLUME 6.4 fl (7.4-10.4); MONOCYTES % 9.7 % (2.0-8.0); NEUTROPHILS % 64.8 % (40.0-76.0); PLATELET 297 x1000/uL (130-400); RED BLOOD CELL COUNT 2.60 mill/uL (4.2-5.4); RED CELL DISTRIBUTION WIDTH 18.0 % (11.6-14.6)
[2025-05-04 07:07] LABS: UREA NITROGEN BLOOD 57.0 mg/dL (9-23)
[2025-05-04 07:41] LABS: CREATININE 9.6 mg/dL (0.6-1.0)
[2025-05-05] VITALS: BP 142/72; PULSE 78; RESP 18; TEMP 36.6; O2SAT 98
[2025-05-05 04:00] VITALS: BP 145/75; PULSE 82; RESP 18; TEMP 37.2; O2SAT 96
[2025-05-05 08:00] VITALS: BP 169/117; PULSE 81; RESP 18; TEMP 36.6; O2SAT 99
[2025-05-05 09:15] VITALS: BP 169/117; PULSE 81; RESP 18; TEMP 97.9
[2025-05-05 12:00] VITALS: BP 150/73; PULSE 81; RESP 18; TEMP 36.4; O2SAT 99
[2025-05-05 13:39] LABS: UREA NITROGEN BLOOD 39.0 mg/dL (9-23)
[2025-05-05 14:06] LABS: CREATININE 6.2 mg/dL (0.6-1.0)
[2025-05-05] MEDS ORDERED: ACETAMINOPHEN 325MG TABLET PO PRN (17:30)
== END 2025-05-05 15:02 | DRG 45 ==
LOC: ER 12:43 → 5WST 15:10 → EDBEDREQTM 15:13 → EDBEDREQ 15:13 → ENRESERV 15:58 → 7EST 02-22 23:52
PROVIDERS: ADMIT Internal Medicine; ATTEND Internal Medicine
PROC: 5A1D70Z Performance of Urinary Filtration, Intermittent, Less than 6 Hours Per Day (ICD-10-PCS; 2025-02-21)
PROC: 5A1D70Z Performance of Urinary Filtration, Intermittent, Less than 6 Hours Per Day (ICD-10-PCS; 2025-02-23)
PROC: 5A1D70Z Performance of Urinary Filtration, Intermittent, Less than 6 Hours Per Day (ICD-10-PCS; 2025-02-25)
PROC: 4A00X4Z Measurement of Central Nervous Electrical Activity, External Approach (ICD-10-PCS; 2025-02-26)
PROC: 5A1D70Z Performance of Urinary Filtration, Intermittent, Less than 6 Hours Per Day (ICD-10-PCS; 2025-02-27)
PROC: 5A1D70Z Performance of Urinary Filtration, Intermittent, Less than 6 Hours Per Day (ICD-10-PCS; 2025-03-02)
PROC: 5A1D70Z Performance of Urinary Filtration, Intermittent, Less than 6 Hours Per Day (ICD-10-PCS; 2025-03-04)
PROC: 5A1D70Z Performance of Urinary Filtration, Intermittent, Less than 6 Hours Per Day (ICD-10-PCS; 2025-03-06)
PROC: 5A1D70Z Performance of Urinary Filtration, Intermittent, Less than 6 Hours Per Day (ICD-10-PCS; 2025-03-09)
PROC: 5A1D70Z Performance of Urinary Filtration, Intermittent, Less than 6 Hours Per Day (ICD-10-PCS; 2025-03-11)
PROC: 5A1D70Z Performance of Urinary Filtration, Intermittent, Less than 6 Hours Per Day (ICD-10-PCS; 2025-03-13)
PROC: 5A1D70Z Performance of Urinary Filtration, Intermittent, Less than 6 Hours Per Day (ICD-10-PCS; 2025-03-16)
PROC: 5A1D70Z Performance of Urinary Filtration, Intermittent, Less than 6 Hours Per Day (ICD-10-PCS; 2025-03-18)
PROC: 5A1D70Z Performance of Urinary Filtration, Intermittent, Less than 6 Hours Per Day (ICD-10-PCS; 2025-03-20)
PROC: 30233N1 Transfusion of Nonautologous Red Blood Cells into Peripheral Vein, Percutaneous Approach (ICD-10-PCS; principal; 2025-03-21)
PROC: 5A1D70Z Performance of Urinary Filtration, Intermittent, Less than 6 Hours Per Day (ICD-10-PCS; 2025-03-24)
PROC: 5A1D70Z Performance of Urinary Filtration, Intermittent, Less than 6 Hours Per Day (ICD-10-PCS; 2025-03-26)
PROC: 5A1D70Z Performance of Urinary Filtration, Intermittent, Less than 6 Hours Per Day (ICD-10-PCS; 2025-03-28)
PROC: 5A1D70Z Performance of Urinary Filtration, Intermittent, Less than 6 Hours Per Day (ICD-10-PCS; 2025-03-30)
PROC: 5A1D70Z Performance of Urinary Filtration, Intermittent, Less than 6 Hours Per Day (ICD-10-PCS; 2025-04-01)
PROC: 5A1D70Z Performance of Urinary Filtration, Intermittent, Less than 6 Hours Per Day (ICD-10-PCS; 2025-04-03)
PROC: 5A1D70Z Performance of Urinary Filtration, Intermittent, Less than 6 Hours Per Day (ICD-10-PCS; 2025-04-06)
PROC: 5A1D70Z Performance of Urinary Filtration, Intermittent, Less than 6 Hours Per Day (ICD-10-PCS; 2025-04-08)
PROC: 5A1D70Z Performance of Urinary Filtration, Intermittent, Less than 6 Hours Per Day (ICD-10-PCS; 2025-04-10)
PROC: 5A1D70Z Performance of Urinary Filtration, Intermittent, Less than 6 Hours Per Day (ICD-10-PCS; 2025-04-13)
PROC: 5A1D70Z Performance of Urinary Filtration, Intermittent, Less than 6 Hours Per Day (ICD-10-PCS; 2025-04-15)
PROC: 5A09357 Assistance with Respiratory Ventilation, Less than 24 Consecutive Hours, Continuous Positive Airway Pressure (ICD-10-PCS; 2025-04-16)
PROC: 5A1D70Z Performance of Urinary Filtration, Intermittent, Less than 6 Hours Per Day (ICD-10-PCS; 2025-04-17)
PROC: 5A1D70Z Performance of Urinary Filtration, Intermittent, Less than 6 Hours Per Day (ICD-10-PCS; 2025-04-20)
PROC: 5A1D70Z Performance of Urinary Filtration, Intermittent, Less than 6 Hours Per Day (ICD-10-PCS; 2025-04-22)
PROC: 5A1D70Z Performance of Urinary Filtration, Intermittent, Less than 6 Hours Per Day (ICD-10-PCS; 2025-04-24)
PROC: 5A1D70Z Performance of Urinary Filtration, Intermittent, Less than 6 Hours Per Day (ICD-10-PCS; 2025-04-27)
PROC: 5A1D70Z Performance of Urinary Filtration, Intermittent, Less than 6 Hours Per Day (ICD-10-PCS; 2025-04-29)
PROC: 5A1D70Z Performance of Urinary Filtration, Intermittent, Less than 6 Hours Per Day (ICD-10-PCS; 2025-05-01)
PROC: 5A1D70Z Performance of Urinary Filtration, Intermittent, Less than 6 Hours Per Day (ICD-10-PCS; 2025-05-04)
DX: I63.512 Cerebral infarction due to unspecified occlusion or stenosis of left middle cerebral artery (principal); I13.11 Hypertensive heart and chronic kidney disease without heart failure, with stage 5 chronic kidney disease, or end stage renal disease; D63.1 Anemia in chronic kidney disease; I50.9 Heart failure, unspecified; E87.5 Hyperkalemia; N18.6 End stage renal disease; D64.9 Anemia, unspecified; Z95.1 Presence of aortocoronary bypass graft; N39.0 Urinary tract infection, site not specified; E78.5 Hyperlipidemia, unspecified; B96.20 Unspecified Escherichia coli [E. coli] as the cause of diseases classified elsewhere; Z99.2 Dependence on renal dialysis; Z59.00 Homelessness unspecified
CPT/HCPCS: 36415; 70551; 71045; 80048; 80051; 80053; 80061; 80305; 80307; 80320; 80329; 81003; 82140; 82962; 83036; 83735; 83880; 84100; 84132; 84484; 85014; 85018; 85025; 85027; 85049; 85384; 86705; 86706; 86709; 86850; 86900; 86920; 87077; 87186; 87340; 90935; 93005; 93880; 95816; 97110; 97112; 97162; 97166; 97530; 97535; 99291; A4606; J0696; J0885; J1308; J1630; J1650; J2997; P9016; G0480